=== PATIENT | female | born 1945 | race Caucasian/White ===

== ENCOUNTER 2021-04-19 15:18 | Emergency (ER) | payer MEDICARE ==
[2021-04-19 19:41] LABS: BASOPHIL 0.3 % (0-2); EOSINOPHIL 3.3 % (0-7); HCT 37.4 % (37.0-47.0); HGB 11.8 g/dl (12.5-16.0); LYMPHOCYTE 20.4 % (15-48); MCH 28.5 pg (25.0-31.0); MCHC 31.6 g/dL (32.0-36.0); MCV 90.3 fL (78.0-100.0); MONOCYTE 13.5 % (0-12); MPV 10.6 fL (6.0-9.5); NEUTROPHIL 62.1 % (41-80); NRBC 0; PLT 257 K/uL (150-400); RBC 4.14 M/uL (4.20-5.40); RDW 14.5 % (11.5-14.0); WBC 10.7 K/uL (4.0-10.5)
[2021-04-19 19:59] LABS: ALBUMIN 2.9 g/dL (3.4-5.0); BILIRUBIN - TOTAL 0.6 mg/dL (0.2-1.0); BUN/CREAT RATIO (CALC) 14.8 RATIO; CREATININE 0.88 mg/dL (0.51-0.95); GLOBULIN (CALCULATION) 3.1 g/dL; POTASSIUM 4.4 mmol/L (3.5-5.1)
[2021-04-19 20:18] LABS: BILIRUBIN NEGATIVE (NEGATIVE); BLOOD NEGATIVE Ery/uL (NEGATIVE); CLARITY CLEAR (CLEAR); COLOR YELLOW (YELLOW); GLUCOSE (U) NORMAL (NORMAL); LEUKOCYTES TRACE Leu/uL (NEGATIVE); NITRITE NEGATIVE (NEGATIVE); PROTEIN NEGATIVE (NEGATIVE); SPECIFIC GRAVITY 1.015 (1.001-1.030); pH 6.5 (5.0-9.0)
[2021-04-19 21:05] LABS: BACTERIA TRACE
[2021-04-19] MEDS ORDERED: AZITHROMYCIN250 MG PO (23:19)
[2021-04-19] MEDS ORDERED: ONDANSETRON ODT4 MG PO (23:19)
== END 2021-04-19 23:30 | disposition home or self-care (01) ==
LOC: FER 15:18
PROVIDERS: Emergency Medicine
DX: U07.1 COVID-19 (principal)
CPT/HCPCS: 36415; 71045; 80053; 81001; 84484; 85025; 85379; 93005; 93970; J0456; J2405; J7030; J7050; M0243; Q0169; Q0244

== ENCOUNTER 2022-01-12 22:05 | Inpatient (IN) | payer MEDICARE ==
[~2022-01-12] VITALS: Ht 170.2 cm; Wt 74.9 kg
[~2022-01-12 22:05] MED LIST: AZITHROMYCIN250 MG PO; ONDANSETRON ODT4 MG PO
[2022-01-12 22:53] LABS: BASOPHIL 0.4 % (0-2); EOSINOPHIL 0.1 % (0-7); HCT 36.5 % (37.0-47.0); HGB 11.7 g/dl (12.5-16.0); LYMPHOCYTE 14.5 % (15-48); MCH 28.5 pg (25.0-31.0); MCHC 32.1 g/dL (32.0-36.0); MCV 88.8 fL (78.0-100.0); MONOCYTE 16.4 % (0-12); MPV 10.1 fL (6.0-9.5); NEUTROPHIL 67.9 % (41-80); NRBC 0; PLT 240 K/uL (150-400); RBC 4.11 M/uL (4.20-5.40); RDW 14.2 % (11.5-14.0); WBC 16.7 K/uL (4.0-10.5)
[2022-01-12 23:18] LABS: ALBUMIN 2.8 g/dL (3.4-5.0); BILIRUBIN - TOTAL 1.2 mg/dL (0.2-1.0); BUN/CREAT RATIO (CALC) 31.8 RATIO; CREATININE 1.07 mg/dL (0.51-0.95); GLOBULIN (CALCULATION) 4.3 g/dL; POTASSIUM 4.2 mmol/L (3.5-5.1); TOTAL PROTEIN 7.1 g/dL (6.4-8.2)
[2022-01-12 23:40] LABS: LACTIC ACID 2.1 mmol/L (0.4-1.9)
[2022-01-13 01:28] LABS: INR 1.24 (0.9-1.2); PROTHROMBIN TIME 14.9 SECONDS (11.8-13.4); PTT 37.4 SECONDS (24.4-34.7)
[2022-01-13 03:34] LABS: CORONAVIRUS 2019 SARS-COV-2 NEGATIVE (NEGATIVE); INFLUENZA A NAA NEGATIVE (NEGATIVE)
[2022-01-13] MEDS ORDERED: PREDNISONE10 MG PO (04:43)
[2022-01-13] MEDS ORDERED: VALACYCLOVIR1000 MG PO (04:44)
[2022-01-13] MEDS ORDERED: AMOX TR-K CLV1 EAC4 PO (04:45)
[2022-01-13] MEDS ORDERED: LOPRESSOR25 MG PO (04:46)
[2022-01-13] MEDS ORDERED: CREON DR 36,001 EACH PO (04:46)
[2022-01-13] MEDS ORDERED: ATORVASTATIN CA40 MG PO (04:47)
[2022-01-13] MEDS ORDERED: FLUTICASONE PRO16 GM INH (04:48)
[2022-01-13] MEDS ORDERED: ASPIRIN EC81 MG PO (04:51)
[2022-01-13 04:58] LABS: BILIRUBIN NEGATIVE (NEGATIVE); BLOOD 1+ Ery/uL (NEGATIVE); CLARITY CLEAR (CLEAR); COLOR YELLOW (YELLOW); GLUCOSE (U) NORMAL (NORMAL); LEUKOCYTES TRACE Leu/uL (NEGATIVE); NITRITE NEGATIVE (NEGATIVE); PROTEIN 1+ mg/dL (NEGATIVE); UROBILINOGEN 0.2 mg/dL (0.2-1.0)
[2022-01-13 05:01] LABS: URINARY RBC RARE
[2022-01-13 05:02] LABS: AMORPHOUS URATES CRYSTALS MODERATE; BACTERIA 1+; MUCOUS TRACE
[2022-01-13 06:10] LABS: IRON % SATURATION 9.8 %SAT (20-50)
[2022-01-13 06:15] LABS: BASOPHIL 0.3 % (0-2); EOSINOPHIL 0.2 % (0-7); HCT 30.9 % (37.0-47.0); LYMPHOCYTE 14.8 % (15-48); MCH 28.8 pg (25.0-31.0); MCHC 32.4 g/dL (32.0-36.0); MPV 10.5 fL (6.0-9.5); NRBC 0; PLT 202 K/uL (150-400); RBC 3.47 M/uL (4.20-5.40); RDW 14.2 % (11.5-14.0)
[2022-01-13 06:16] LABS: INR 1.45 (0.9-1.2); PROTHROMBIN TIME 16.9 SECONDS (11.8-13.4)
[2022-01-13 07:17] LABS: ALBUMIN 2.1 g/dL (3.4-5.0); ALKALINE PHOSHATASE 91 U/L (46-116); ALT 18 U/L (14-59); AST 19 U/L (15-37); BILIRUBIN - TOTAL 1.1 mg/dL (0.2-1.0); BUN 27 mg/dL (7-18); BUN/CREAT RATIO (CALC) 27.3 RATIO; C-REACTIVE PROTEIN >18.00 mg/dL (<=0.90); CHLORIDE 103 mmol/L (98-107); CO2 (BICARBONATE) 25 mmol/L (21-32); CREATININE 0.99 mg/dL (0.51-0.95); GLOBULIN (CALCULATION) 3.3 g/dL; GLUCOSE 142 mg/dL (74-106); POTASSIUM 3.6 mmol/L (3.5-5.1); TOTAL PROTEIN 5.4 g/dL (6.4-8.2)
[2022-01-14 05:56] LABS: BASOPHIL 0.4 % (0-2); EOSINOPHIL 0.2 % (0-7); HCT 30.2 % (37.0-47.0); HGB 9.9 g/dl (12.5-16.0); LYMPHOCYTE 10.3 % (15-48); MCH 29.1 pg (25.0-31.0); MCHC 32.8 g/dL (32.0-36.0); MCV 88.8 fL (78.0-100.0); MONOCYTE 13.2 % (0-12); MPV 10.1 fL (6.0-9.5); NEUTROPHIL 74.8 % (41-80); NRBC 0; PLT 214 K/uL (150-400); RDW 14.4 % (11.5-14.0)
[2022-01-14 06:23] LABS: BUN/CREAT RATIO (CALC) 30.4 RATIO; CREATININE 0.92 mg/dL (0.51-0.95); POTASSIUM 4.1 mmol/L (3.5-5.1)
--- NOTE | 2022-01-14 15:37 | NUR ---
01/14 Ms. Velázquez lives at home with her spouse. She does not use DME. However, she has a rw, wc, cane, and 3in1. - Will monitor for 02 needs.
[2022-01-15 04:05] LABS: BASOPHIL 0.3 % (0-2); HCT 34.7 % (37.0-47.0); HGB 11.2 g/dl (12.5-16.0); LYMPHOCYTE 9.9 % (15-48); MCH 29.1 pg (25.0-31.0); MCHC 32.3 g/dL (32.0-36.0); MCV 90.1 fL (78.0-100.0); MONOCYTE 11.8 % (0-12); MPV 10.5 fL (6.0-9.5); NEUTROPHIL 75.8 % (41-80); NRBC 0; PLT 257 K/uL (150-400); RBC 3.85 M/uL (4.20-5.40); RDW 14.2 % (11.5-14.0); WBC 19.8 K/uL (4.0-10.5)
[2022-01-15 04:07] LABS: BUN/CREAT RATIO (CALC) 21.8 RATIO; CREATININE 0.87 mg/dL (0.51-0.95); MAGNESIUM 1.8 mg/dL (1.8-2.4); VANCOMYCIN, TROUGH 7.9 ug/mL (10-20)
[2022-01-15] MEDS ORDERED: AMOX TR-K CLV1 EAC4 PO (15:55)
[2022-01-15] MEDS ORDERED: DIFLUCAN 100MG100 MG PO (15:55)
[2022-01-15] MEDS ORDERED: PROTONIX 40MG T40 MG PO (16:44)
[2022-01-15] MEDS ORDERED: POLY-IRON150 MG PO (16:48)
--- NOTE | 2022-01-15 17:09 | NUR ---
PT D/C TO HOME WITH , PT STABLE AT TIME OF DISCHARGE, IV REMOVED. A BELONGINGS SENT HOME WITH FAMILY
== END 2022-01-15 16:58 | disposition home or self-care (01) | DRG 871 ==
LOC: FER 22:05 → FTCU 01-13 02:01
PROVIDERS: Internal Medicine; Nurse Practitioner Acute Care; Physician Assistant; Student in an Organized Health Care Education/Training Program; ADMIT Family Medicine
PROC: 3E03329 Introduction of Other Anti-infective into Peripheral Vein, Percutaneous Approach (ICD-10-PCS; principal; 2022-01-12)
PROC: 0DB78ZX Excision of Stomach, Pylorus, Via Natural or Artificial Opening Endoscopic, Diagnostic (ICD-10-PCS; 2022-01-14)
PROC: B24BZZZ Ultrasonography of Heart with Aorta (ICD-10-PCS; 2022-01-14)
PROC: 0DB58ZX Excision of Esophagus, Via Natural or Artificial Opening Endoscopic, Diagnostic (ICD-10-PCS; 2022-01-14 12:00)
DX: A41.02 Sepsis due to Methicillin resistant Staphylococcus aureus (principal); J15.211 Pneumonia due to Methicillin susceptible Staphylococcus aureus; J15.6 Pneumonia due to other Gram-negative bacteria; K29.71 Gastritis, unspecified, with bleeding; N17.9 Acute kidney failure, unspecified; N30.00 Acute cystitis without hematuria; B37.81 Candidal esophagitis; D68.9 Coagulation defect, unspecified; K86.1 Other chronic pancreatitis; A41.50 Gram-negative sepsis, unspecified; R65.20 Severe sepsis without septic shock; D50.9 Iron deficiency anemia, unspecified; J84.10 Pulmonary fibrosis, unspecified; K44.9 Diaphragmatic hernia without obstruction or gangrene; Z20.822 Contact with and (suspected) exposure to COVID-19; I25.10 Atherosclerotic heart disease of native coronary artery without angina pectoris; K21.9 Gastro-esophageal reflux disease without esophagitis; F32.A Depression, unspecified; G47.33 Obstructive sleep apnea (adult) (pediatric); F41.9 Anxiety disorder, unspecified; E80.6 Other disorders of bilirubin metabolism; R73.9 Hyperglycemia, unspecified; Z96.651 Presence of right artificial knee joint; Z90.49 Acquired absence of other specified parts of digestive tract; Z90.710 Acquired absence of both cervix and uterus; Z79.899 Other long term (current) drug therapy; Z98.890 Other specified postprocedural states; Z82.49 Family history of ischemic heart disease and other diseases of the circulatory system; Z80.1 Family history of malignant neoplasm of trachea, bronchus and lung; Z79.82 Long term (current) use of aspirin; Z88.5 Allergy status to narcotic agent; Z88.1 Allergy status to other antibiotic agents; Z86.16 Personal history of COVID-19
CPT/HCPCS: 36415; 71046; 71250; 78582; 80048; 80053; 80202; 81001; 82728; 83036; 83540; 83550; 83605; 83735; 83880; 84145; 84484; 85025; 85379; 85610; 85730; 86140; 87040; 87070; 87205; 93005; 94010; 94640; 94667; 94668; 96372; A9540; C9113; J0456; J0692; J1650; J2405; J2543; J2704; J3370; J7030; J7040; J7050; J7120; U0002